=== PATIENT | male | born 2000 | race Caucasian/White ===

== ENCOUNTER 2018-08-28 23:28 | Emergency (ER) | payer BC, OTHER ==
[2018-08-29 00:29] LABS: Urine Appearance CLOUDY; Urine Bilirubin NEGATIVE (NEG); Urine Blood NEGATIVE (NEG); Urine Color YELLOW; Urine Glucose NEGATIVE (NEG); Urine Protein NEGATIVE (NEG); Urine Urobilinogen 0.2 mg/dL (0.2-1.0); Urine pH 7.5 (5.0-7.0)
[2018-08-29 00:30] LABS: Urine Microscopic Reflex NO UMIC
[2018-08-29 00:31] LABS: Absolute Lymphocytes (CBC) 1.6 K/uL (0.7-4.9); Absolute Monocytes 0.9 K/uL (0.1-1.3); Basophils % 0.3 % (0-1.3); Eosinophils % 0.3 % (0-4.4); Hematocrit 26.3 % (39.6-49.0); Lymphocytes % 18.7 % (15.3-44.8); MPV 9.1 fL (7.6-11.3); Monocytes % 10.8 % (3.3-12.3); RBC Red Blood Cell Count 2.92 M/uL (4.33-5.43)
[2018-08-29 00:35] LABS: Barbiturates NEGATIVE (NEGATIVE); Benzodiazepines NEGATIVE (NEGATIVE); Cocaine NEGATIVE (NEGATIVE); METHAMPHETAM NEGATIVE (NEGATIVE); Methadone NEGATIVE (NEGATIVE); Opiates NEGATIVE (NEGATIVE); Phencyclidine NEGATIVE (NEGATIVE); THC Cannibis POSITIVE (NEGATIVE)
[2018-08-29] MEDS ORDERED: NA CHLORIDE 0.9% 1,000 ML ONE (00:36)
[2018-08-29 00:38] LABS: Urine RBC NONE SEEN /HPF (NONE SEEN)
[2018-08-29 00:39] LABS: Urine Amorphous Sediment 2+ /HPF (NONE SEEN); Urine Bacteria <20 /HPF (NONE SEEN); Urine Culture Reflex Order NOT NEEDED
[2018-08-29 00:40] LABS: BUN Blood Urea Nitrogen 18 mg/dL (7-18); Bicarbonate 29 mmol/L (21-32); Glucose Level 113 mg/dL (74-106); Potassium 3.7 mmol/L (3.5-5.1); Sodium Level 138 mmol/L (136-145)
[2018-08-29 00:41] LABS: Urine Blood NEGATIVE (NEG); Urine Glucose NEGATIVE (NEG); Urine Protein NEGATIVE (NEG); Urine Specific Gravity 1.015 (1.005-1.030); Urine pH 7.5 (5.0-7.0)
[2018-08-29] MEDS ORDERED: FENTANYL CITR 100 MCG/2 ML ONE (01:07)
--- NOTE | 2018-08-29 03:10 | ER ---
Nurse's Notes [facility] Name: Jose Monroe Age: 18 yrs Sex: Male : 2000 Arrival Date: 08/28/2018 Time: 23:29 Bed 20 Private MD: Diagnosis: Persistent back pain. S/P back surgery Presentation: 08/28 23:31 Presenting complaint: EMS states: Reports he had back surgery Monday, reports he took ea his pain meds tonight and smoked marijuana. States he feels like he has palpitations. Transition of care: patient was not received from another setting of care. Onset of symptoms was August 28, 2018. 23:31 Method Of Arrival: EMS: [facility] ea 23:31 Acuity: VIJAY 3 ea 23:44 Risk Assessment: Do you want to hurt yourself or someone else? Patient reports no ea desire to harm self or others. Initial Sepsis Screen: Does the patient meet any 2 criteria? No. Patient's initial sepsis screen is negative. Does the patient have a suspected source of infection? No. Patient's initial sepsis screen is negative. Care prior to arrival: Medication(s) given: Toradol 30mg IV, Medrol dose pack. Triage Assessment: 23:45 General: Appears in no apparent distress. Behavior is calm, cooperative, appropriate ea for age. General: Pt states "I took my pain medicine and smoked cannabis and I feel like I might be having an interaction". Pain: Complains of pain in back. Neuro: Level of Consciousness is awake, alert, obeys commands, Oriented to person, place, time, situation. Cardiovascular: Patient's skin is warm and dry. Respiratory: Airway is patent Respiratory effort is even, unlabored, Respiratory pattern is regular, symmetrical. Derm: Skin is pink, warm \\T\\ dry. Historical: - Allergies: 23:50 No Known Allergies; ea - Home Meds: 23:50 Lovenox 30 mg/0.3 mL Sub-Q syrg once daily [Active]; methocarbamol 750 mg Oral tab 1 ea tab 8 hours [Active]; Keflex Oral [Active]; Medrol Oral [Active]; Colace oral oral [Active]; 23:52 Sandoval 10-325 mg Oral tab 1 tab every 4 hours [Active]; ea - PMHx: 23:52 scoliosis; Hernia; Back pain; ea - PSHx: 23:52 L5-S1 Fusion; ea - Immunization history:: Adult Immunizations up to date. - Social history:: Smoking status: Patient/guardian denies using tobacco, Patient uses Cannabis . - Ebola Screening: : No symptoms or risks identified at this time. Screenin:42 Abuse screen: Denies threats or abuse. Nutritional screening: No deficits noted. ea Tuberculosis screening: No symptoms or risk factors identified. Fall Risk None identified. Assessment: 23:55 Reassessment: Patient and/or family updated on plan of care and expected duration. Pain ea level reassessed. see triage assessment. 08/29 00:50 Reassessment: Patient and/or family updated on plan of care and expected duration. Pain ea level reassessed. Pt complaining of back pain, provider notified, order obtained. 01:15 Reassessment: Patient and/or family updated on plan of care and expected duration. Pain ea level reassessed. Patient is alert, oriented x 3, equal unlabored respirations, skin warm/dry/pink. Pt taken to CT. 01:36 Reassessment: Patient and/or family updated on plan of care and expected duration. Pain ea level reassessed. Patient is alert, oriented x 3, equal unlabored respirations, skin warm/dry/pink. Pt returned from CT, complains of pain to back, provider notified, medication administered, pt tolerated well. 02:50 Reassessment: Patient and/or family updated on plan of care and expected duration. Pain ea level reassessed. Patient is alert, oriented x 3, equal unlabored respirations, skin warm/dry/pink. 03:26 Reassessment: Patient and/or family updated on plan of care and expected duration. Pain ea level reassessed. Patient is alert, oriented x 3, equal unlabored respirations, skin warm/dry/pink. Pt complaining of pain, provider aware, med order obtained, medication administered. 04:43 Reassessment: Patient and/or family updated on plan of care and expected duration. Pain ea level reassessed. Patient is alert, oriented x 3, equal unlabored respirations, skin warm/dry/pink. 05:50 Reassessment: Patient and/or family updated on plan of care and expected duration. Pain ea level reassessed. Patient is alert, oriented x 3, equal unlabored respirations, skin warm/dry/pink. 06:33 Reassessment: Patient and/or family updated on plan of care and expected duration. Pain ea level reassessed. Patient is alert, oriented x 3, equal unlabored respirations, skin warm/dry/pink. Pt reports pain has decreased. 07:11 Reassessment: Patient and/or family updated on plan of care and expected duration. Pain ea level reassessed. Patient is alert, oriented x 3, equal unlabored respirations, skin warm/dry/pink. Discharge instruction given to patient, physician updated pt to follow up with surgeon who performed the back surgery. Family and patient verbalized the understanding of instruction. Vital Signs: 08/28 23:30 BP 148 / 78; Pulse 112; Resp 18; Temp 99.9; Pulse Ox 100% ; Weight 72.57 kg; Height 6 ea ft. (182.88 cm); Pain 7/10; 08/29 00:30 BP 152 / 60; Pulse 100; Resp 19; Pulse Ox 99% ; ea 01:00 BP 138 / 65; Pulse 80; Resp 18; Pulse Ox 99% ; ea 02:31 BP 143 / 65; Pulse 87; Resp 18; Temp 98.9; Pulse Ox 99% on R/A; ea 03:26 BP 157 / 88; Pulse 80; Resp 18; Pulse Ox 97% on R/A; ea 05:50 BP 140 / 82; Pulse 78; Resp 18; Pulse Ox 98% on R/A; ea 06:34 BP 136 / 70; Pulse 78; Resp 18; Pulse Ox 98% ; ea 07:12 BP 138 / 72; Pulse 80; Resp 18; Temp 98.7(O); Pulse Ox 98% ; Pain 5/10; ea 08/28 23:30 Body Mass Index 21.70 (72.57 kg, 182.88 cm) ea ED Course: 08/28 23:29 Patient arrived in ED. al2 23:30 Patient has correct armband on for positive identification. Bed in low position. Call ea light in reach. Side rails up X2. 23:30 Maintain EMS IV. Dressing intact. Good blood return noted. Site clean \\T\\ dry. Gauge \\T\\ ea site: 20 G right AC. 23:31 Dino Antoine MD is Attending Physician. pkl 23:31 Bolaños, Alana, RN is Primary Nurse. ea 23:35 Arm band placed on right wrist. Patient placed in an exam room, on a stretcher, on ea residential monitor, on pulse oximetry. 23:41 Triage completed. ea 08/29 01:33 Spine Lumbar W/Cont In Process Unspecified. EDMS 07:13 No provider procedures requiring assistance completed. IV discontinued, intact, ea bleeding controlled, No redness/swelling at site. Pressure dressing applied. Administered Medications: 01:06 Drug: NS 0.9% 1000 ml Route: IV; Rate: 125 ml/hr; Site: right antecubital; ea 07:15 Follow up: Response: No adverse reaction; IV Status: Completed infusion; IV Intake: ea 600ml 01:06 Drug: fentaNYL (PF) 25 mcg Route: IVP; Site: right antecubital; ea 01:15 Follow up: Response: No adverse reaction; Pain is decreased ea 01:35 Drug: fentaNYL (PF) 25 mcg Route: IVP; Site: right antecubital; ea 02:00 Follow up: Response: No adverse reaction; Pain is decreased ea 03:28 Drug: fentaNYL (PF) 25 mcg Route: IVP; Site: right antecubital; ea 04:00 Follow up: Response: No adverse reaction; Pain is decreased ea 05:42 Drug: Demerol 50 mg Route: IVP; Site: right antecubital; ea 06:36 Follow up: Response: No adverse reaction; Pain is decreased ea Intake: 07:15 IV: 600ml; Total: 600ml. ea Outcome: 03:10 Discharge ordered by . pkl 06:50 Discharge ordered by . pkl 07:13 Discharged to home via wheelchair, with family. ea 07:13 Condition: good 07:13 Discharge instructions given to patient, family, Instructed on discharge instructions, follow up and referral plans. Demonstrated understanding of instructions, follow-up care. 07:14 Patient left the ED. ea Signatures: Dispatcher [employer] EDGA Dino Antoine MD MD pkl Antunez, Elena, RN RN Alejandar Grewal
--- NOTE | 2018-08-29 03:11 | EDPHYS ---
Physician Documentation [facility] Name: Jose Monroe Age: 18 yrs Sex: Male : 2000 Arrival Date: 08/28/2018 Time: 23:29 Bed 20 Private MD: ED Physician Dino Antoine HPI: 08/29 00:15 This 18 yrs old Male presents to ER via EMS with unknown complaint. pkl 00:15 The patient presents with pain that is acute. The symptoms are located in the low back. pkl Onset: The symptoms/episode began/occurred 4 day(s) ago. S/P back surgery 4 days ago. Has been complaining of persistent back pain in the back after surgery in spite of taking pain medication ( [place] 10 ). Smoked marijuana tonight hoping for pain relieve. Instead patient diaphoretic, confused and having palpitations.. Historical: - Allergies: 08/28 23:50 No Known Allergies; ea - Home Meds: 23:50 Lovenox 30 mg/0.3 mL Sub-Q syrg once daily [Active]; methocarbamol 750 mg Oral tab 1 ea tab 8 hours [Active]; Keflex Oral [Active]; Medrol Oral [Active]; Colace oral oral [Active]; 23:52 [place] 10-325 mg Oral tab 1 tab every 4 hours [Active]; ea - PMHx: 23:52 scoliosis; Hernia; Back pain; ea - PSHx: 23:52 L5-S1 Fusion; ea - Immunization history:: Adult Immunizations up to date. - Social history:: Smoking status: Patient/guardian denies using tobacco, Patient uses Cannabis . - Ebola Screening: : No symptoms or risks identified at this time. ROS: 08/29 00:15 Eyes: Negative for injury, pain, redness, and discharge, ENT: Negative for injury, pkl pain, and discharge, Neck: Negative for injury, pain, and swelling. Cardiovascular: Positive for palpitations. Respiratory: Negative for cough, shortness of breath. Abdomen/GI: Negative for abdominal pain, nausea, vomiting. Back: Positive for pain at rest, of the lower. : Negative for urinary symptoms. MS/extremity: Negative for acute changes. Skin: Negative for rash. Neuro: Negative for loss of consciousness. Exam: 00:15 Head/Face: Normocephalic, atraumatic. Eyes: Pupils equal round and reactive to light, pkl extra-ocular motions intact. Lids and lashes normal. Conjunctiva and sclera are non-icteric and not injected. Cornea within normal limits. Periorbital areas with no swelling, redness, or edema. ENT: Nares patent. No nasal discharge, no septal abnormalities noted. Tympanic membranes are normal and external auditory canals are clear. Oropharynx with no redness, swelling, or masses, exudates, or evidence of obstruction, uvula midline. Mucous membranes moist. Neck: Trachea midline, no thyromegaly or masses palpated, and no cervical lymphadenopathy. Supple, full range of motion without nuchal rigidity, or vertebral point tenderness. No Meningismus. Chest/axilla: Normal chest wall appearance and motion. Nontender with no deformity. No lesions are appreciated. Cardiovascular: Regular rate and rhythm with a normal S1 and S2. No gallops, murmurs, or rubs. Normal PMI, no JVD. No pulse deficits. Respiratory: Lungs have equal breath sounds bilaterally, clear to auscultation and percussion. No rales, rhonchi or wheezes noted. No increased work of breathing, no retractions or nasal flaring. Abdomen/GI: Soft, non-tender, with normal bowel sounds. No distension or tympany. No guarding or rebound. No evidence of tenderness throughout. 00:15 Back: pain, that is moderate, of the lower back. 00:15 : Exam negative for acute changes. 00:15 Musculoskeletal/extremity: Exam is negative for acute changes. 00:15 Skin: Exam negative for rash. 00:15 Neuro: Orientation: is normal, Mentation: is normal, Cranial nerves: grossly normal, Motor: is normal. Vital Signs: 08/28 23:30 BP 148 / 78; Pulse 112; Resp 18; Temp 99.9; Pulse Ox 100% ; Weight 72.57 kg; Height 6 ea ft. (182.88 cm); Pain /10; 08/29 00:30 BP 152 / 60; Pulse 100; Resp 19; Pulse Ox 99% ; ea 01:00 BP 138 / 65; Pulse 80; Resp 18; Pulse Ox 99% ; ea 02:31 BP 143 / 65; Pulse 87; Resp 18; Temp 98.9; Pulse Ox 99% on R/A; ea 03:26 BP 157 / 88; Pulse 80; Resp 18; Pulse Ox 97% on R/A; ea 05:50 BP 140 / 82; Pulse 78; Resp 18; Pulse Ox 98% on R/A; ea 06:34 BP 136 / 70; Pulse 78; Resp 18; Pulse Ox 98% ; ea 07:12 BP 138 / 72; Pulse 80; Resp 18; Temp 98.7(O); Pulse Ox 98% ; Pain 5/10; ea 08/28 23:30 Body Mass Index 21.70 (72.57 kg, 182.88 cm) ea MDM: 08/28 23:31 Patient medically screened. pkl 08/29 03:00 Data reviewed: vital signs, nurses notes, lab test result(s), radiologic studies, CT pkl scan. ED course: Talked to Dr. Esparza. Notified lab. and CT Scan results. Dr. Esparza insisted there is no infection and not to start any antibiotic. Said he will see the patient in the office in the morning. Notified parents of Dr. Esparza plans and that he will see patient in his office in the morning. Parents understood instructions. 06:40 ED course: Talked to Dr. Scott Frazier ( Spine surgeon ) at [facility]. He advised patient to see Dr. Esparza today for evaluation. If patient need a 2nd opinion, he can call [phone] ( Spine surgery at [facility] for an appointment. Talked to patient and parents and they understood the instructions.. 08/28 23:56 Order name: CBC with Diff; Complete Time: 00:37 pkl 08/28 23:56 Order name: Chem 7; Complete Time: 00:41 pkl 08/28 23:56 Order name: UDS; Complete Time: 00:37 pkl 08/29 00:14 Order name: UA; Complete Time: 00:40 pkl 08/29 00:38 Order name: Urine Dipstick--Ancillary (enter results); Complete Time: 00:43 ms 08/29 00:38 Order name: Urine Microscopic Only; Complete Time: 00:40 EDMS 08/29 03:41 Order name: CBC with Diff; Complete Time: 06:07 ea 08/29 03:41 Order name: CRP; Complete Time: 06:07 ea 08/29 03:42 Order name: Blood Culture Adult (2) ea 08/29 03:42 Order name: Lactate; Complete Time: 06:07 ea 08/29 03:42 Order name: Sed Rate; Complete Time: 06:07 ea 08/28 23:56 Order name: EKG; Complete Time: 23:56 pkl 08/29 00:44 Order name: Spine Lumbar W/Cont EDMS Administered Medications: 01:06 Drug: NS 0.9% 1000 ml Route: IV; Rate: 125 ml/hr; Site: right antecubital; ea 07:15 Follow up: Response: No adverse reaction; IV Status: Completed infusion; IV Intake: ea 600ml 01:06 Drug: fentaNYL (PF) 25 mcg Route: IVP; Site: right antecubital; ea 01:15 Follow up: Response: No adverse reaction; Pain is decreased ea 01:35 Drug: fentaNYL (PF) 25 mcg Route: IVP; Site: right antecubital; ea 02:00 Follow up: Response: No adverse reaction; Pain is decreased ea 03:28 Drug: fentaNYL (PF) 25 mcg Route: IVP; Site: right antecubital; ea 04:00 Follow up: Response: No adverse reaction; Pain is decreased ea 05:42 Drug: Demerol 50 mg Route: IVP; Site: right antecubital; ea 06:36 Follow up: Response: No adverse reaction; Pain is decreased ea Disposition: 08/29/18 06:50 Discharged to Home. Impression: Persistent back pain. S/P back surgery. - Condition is Stable. - Medication Reconciliation Form, Thank You Letter, Antibiotic Education, Prescription Opioid Use form. - Follow up: Private Physician; When: Today; Reason: Re-evaluation by your physician. - Problem is new. - Symptoms are unchanged. Signatures: Dispatcher [employer] EDMS Dino Antoine MD MD pkl Antunez, Elena RN RN feliciano Corrections: (The following items were deleted from the chart) 00:44 08/28 23:56 Spine Lumbar Wo Con+CT.RAD.BRZ ordered. EDMS EDMS 08/29 03:00 02:43 LACTATE+C.LAB.BRZ ordered. EDMS EDMS 03:01 02:43 [place] SEDRATE+H.LAB.BRZ ordered. EDMS EDMS 03:01 02:44 BLOOD CULTURE*+BA.LAB.BRZ ordered. [facility] EDPR 04:32 03:10 08/29/2018 03:10 Discharged to Home. Impression: Persistent back pain. S/P back aa1 surgery. Condition is Stable. Forms are Medication Reconciliation Form, Thank You Letter, Antibiotic Education, Prescription Opioid Use. Follow up: Private Physician; When: Today; Reason: Re-evaluation by your physician. Problem is new. Symptoms are unchanged. pkl 07:14 06:50 08/29/2018 06:50 Discharged to Home. Impression: Persistent back pain. S/P back ea surgery. Condition is Stable. Forms are Medication Reconciliation Form, Thank You Letter, Antibiotic Education, Prescription Opioid Use. Follow up: Private Physician; When: Today; Reason: Re-evaluation by your physician. Problem is new. Symptoms are unchanged. pkl
[2018-08-29 04:16] LABS: Absolute Lymphocytes (CBC) 1.8 K/uL (0.7-4.9); Absolute Monocytes 0.9 K/uL (0.1-1.3); Absolute Neutrophil 6.5 K/uL (1.8-8.0); Basophils % 0.5 % (0-1.3); Eosinophils % 0.3 % (0-4.4); Hematocrit 30.2 % (39.6-49.0); Lymphocytes % 19.7 % (15.3-44.8); Monocytes % 9.7 % (3.3-12.3); RBC Red Blood Cell Count 3.37 M/uL (4.33-5.43)
[2018-08-29] MEDS ORDERED: MEPERIDINE HCL 50 MG/ML AMP ONE (05:46)
[2018-08-29 07:27] VITALS: O2SAT 98
[2018-08-29 07:30] VITALS: BP 138/72; TEMP 98.7
--- NOTE | 2018-08-29 09:56 | RAD REPORT ---
EXAM DESCRIPTION: CT - Spine Lumbar W/Cont - 08/29/2018 1:33 am CLINICAL HISTORY: Increasing back pain, history of L5-S1 fusion August 24, 2018. A preliminary report was provided at the time of the study and reviewed prior to final report. COMPARISON: None. TECHNIQUE: Axial 2 mm thick images of the lumbar spine were obtained with sagittal and coronal refor matted images generated and reviewed. Nonionic IV contrast was administered. The CT scan was performed using dose optimization techniques as appropriate to a performed exam incl uding one or more of the following: Automated exposure control, adjustment of the mA and/or kV accord ing to patient size (this includes techniques or standardized protocols for targeted exams where dose is matched to indication/reason for exam) and use of iterative reconstruction technique. FINDINGS: L5-S1 fusion changes are present. There has been posterior decompression of the spinous pr ocess L5 and S1 and partial resection of the inferior facet and lamina at L5. Pedicle screws and asael s are in place posteriorly. There is graft material in the L5-S1 disc space with L5 and S1 bone screw s anteriorly fixing the graft material. Hardware is well positioned. No unexpected hardware finding. L5-S1 alignment is normal. Remaining lumbar and lower thoracic vertebrae are normal in height and alignment. Central canal detail is inherently limited. The T11-T12 through L4-L5 disc levels show no herniation or significant degree of disc bulging. No suspicion for mass or hematoma in the central canal through these regions. The postsurgical and hardware changes creates substantial spray artifact that limits assessment of th e central canal at the L5 level and L5-S1 disc level. No gross evidence for a central canal abnormali ty. Bone harvesting surgical defect noted in the left ilium. The air and soft tissue attenuation in this region not unexpected for the recent surgery. Contrast opacified vasculature is present. There of several linear and curvilinear densities in the p osterior and left posterior pelvis. There is some variability in density. There is no large hematoma present. Punctate air densities are present in the left side of the pelvis as well. Postsurgical gaston ge accounts for most of the soft tissue and hyperdense opacification with the overall volume not outs aleksandra of normal range. A small amount of active extravasation is not excluded but on likely. Given that the patient is approximately five days out from surgery, this may all be normal postsurgical change. The preliminary [facility] report indicated medial gluteal abscess and extensive infectious process in the left pelvis. Final report is contrary to that finding. By available history, the patient was not admitted or transferred due to the preliminary report. IMPRESSION: 1. Air densities, amorphous soft tissue attenuation and multiple linear and curvilinear densities are present in the posterior and left side pelvis. 2. The patient is status post lumbar fusion five days earlier. The air, soft tissue attenuation and h yperdensities in the posterior and left posterior pelvis believed to be all part of postsurgical gaston ge. Active extravasation is unlikely. No significant hematoma formation seen. 3. Central canal evaluation at the L5 level and the L5-S1 disc level is limited due to the artifact f rom the hardware and inherent central canal CT assessment limitation. No significant unexpected findi ng. 4. Final report varies significantly from the preliminary [facility] report. It was confirmed through the emergency department that the patient was not transferred or admitted due to the preliminary repo rt.
--- NOTE | 2018-08-29 14:37 | EKG ---
Test Date: 2018-08-29 Test Time: 00:50:33 Dip Dyer: [id number] MEASUREMENT RESULTS: Intervals: Rate: 86 NV: 126 QRSD: 94 QT: 352 QTc: 421 [place]: P: 62 NV: 126 QRS: 64 T: 27 INTERPRETIVE STATEMENTS: Sinus rhythm with marked sinus arrhythmia Possible Lateral infarct, age undetermined Abnormal ECG Compared to ECG 03/30/2017 15:23:50 Myocardial infarct finding now present Sinus bradycardia no longer present Electronically Signed On 08-29-18 14:35:33 IT ARCHITECT by Johny Mcneal
== END 2018-08-29 07:14 | disposition home or self-care (01) ==
LOC: ER 23:28
DX: M54.9 Dorsalgia, unspecified (principal); Z98.890 Other specified postprocedural states
CPT/HCPCS: 36415; 72132; 80048; 80307; 81003; 81015; 83605; 85025; 85652; 86140; 87040; 93005; 96361; 96374; 96375; 99284; J2175; J3010; J7030; Q9967